=== PATIENT | male | born 1965 | race African-American/Black ===

== ENCOUNTER 2020-05-24 19:05 | Inpatient (IN) | payer BC ==
[~2020-05-24] VITALS: Ht 177.8 cm; Wt 137.0 kg
[~2020-05-24 19:05] MED LIST: AMLO10TA80 PO; ASPI-1497 PO; LISI-604 PO; LISI2.5T47 PO; SIMV-46 PO; SITA50TA3 PO; SPIR25TA6 PO
[2020-05-24] MEDS ORDERED: MORPHINE SULFATE 4 MG/ML CPJ (NOT FOR IM USE) IV STA (20:03)
[2020-05-24] MEDS ORDERED: SODIUM CHLORIDE 0.9% 500 ML IV ONE (20:15)
[2020-05-24 21:01] LABS: BASOPHILS % 0.8 % (0.0-2.0); EOSINOPHILS % 1.1 % (0.0-5.0); HEMATOCRIT. 46.3 % (42.0-52.0); HEMOGLOBIN. 15.6 g/dL (14.0-18.0); LYMPHOCYTES % 30.1 % (20.0-50.0); MEAN CORPUSCULAR VOLUME 83.3 fL (80.0-94.0); MEAN PLATELET VOLUME 8.5 fl (7.4-10.4); MONOCYTES % 12.3 % (2.0-8.0); NEUTROPHILS % 55.7 % (40.0-76.0); PLATELET 266 x1000/uL (130-400); RED BLOOD CELL COUNT 5.56 mill/uL (4.7-6.1); RED CELL DISTRIBUTION WIDTH 14.9 % (11.6-14.6)
[2020-05-24 21:09] LABS: CLARITY URINE CLEAR (CLEAR); COLOR URINE YELLOW (YELLOW); KETONES URINE NEGATIVE (NEGATIVE); LEUKOCYTE ESTERASE URINE NEGATIVE (NEGATIVE); NITRITE URINE NEGATIVE (NEGATIVE); OCCULT BLOOD URINE NEGATIVE (NEGATIVE); PH URINE 7.5 (4.5-8.0); PROTEIN URINE 2+ (NEGATIVE); SPECIFIC GRAVITY URINE 1.022 (1.005-1.030); UROBILINOGEN URINE 0.2 E.U./dL (0.2-1.0)
[2020-05-24 21:11] LABS: CHLORIDE 100 mEq/L (98-107)
[2020-05-24 21:12] LABS: INR 1.1; PROTHROMBIN TIME 11.6 sec (9.6-11.0)
[2020-05-24] MEDS ORDERED: IOHEXOL-300 100 ML BOTTLE ONE (22:53)
[2020-05-24] MEDS ORDERED: LACTATED RINGERS 1,000 ML IV ONE (23:15)
[2020-05-24] MEDS ORDERED: DEXTROSE 50% WATER 50ML SYRINGE IV ONE (23:15)
[2020-05-25] MEDS ORDERED: ONDANSETRON HCL 4MG/2ML INJ IV PRN (10:15)
[2020-05-25] MEDS: DEXT 5%/0.45% NACL 1000ML 1,000 ML IV SCH ×2 (10:15→22:47)
[2020-05-25] MEDS ORDERED: POTASSIUM CHLORIDE 20MEQ TABLET SR PO NR (10:15)
[2020-05-25] MEDS: ACETAMINOPHEN 325MG TABLET PO PRN (11:41)
[2020-05-25 21:00] VITALS: BP 120/72
[2020-05-25] MEDS: MORPHINE SULFATE 2 MG/ML CPJ (NOT FOR IM USE) IV PRN (21:39)
[2020-05-26] VITALS: BP 129/73
[2020-05-26] MEDS ORDERED: MULT-1116 PO (03:20)
[2020-05-26] MEDS ORDERED: SITA1TBM7 PO (03:20)
[2020-05-26] MEDS ORDERED: TIMO5DRO32 OP (03:20)
[2020-05-26] MEDS ORDERED: APIX5TAB PO (03:20)
[2020-05-26] MEDS ORDERED: FAMO-135 PO (03:20)
[2020-05-26] MEDS ORDERED: LEVO500T2 PO (03:20)
[2020-05-26] MEDS ORDERED: NETA2.5D OP (03:20)
[2020-05-26] MEDS ORDERED: BIMA2.5D4 OP (03:20)
[2020-05-26] MEDS ORDERED: DAPA10TA PO (03:20)
[2020-05-26] MEDS ORDERED: FURO-151 PO (03:20)
[2020-05-26 04:00] VITALS: BP 119/88
[2020-05-26] MEDS: ACETAMINOPHEN 325MG TABLET PO PRN (06:40)
[2020-05-26 08:00] VITALS: BP 122/66
[2020-05-26] MEDS ORDERED: LIDOCAINE HCL 1% 20ML VIAL (Pyxis) INJ ONE (10:00)
[2020-05-26] MEDS: MORPHINE SULFATE 2 MG/ML CPJ (NOT FOR IM USE) IV PRN ×2 (10:58→21:46)
[2020-05-26 12:00] VITALS: BP 119/76
[2020-05-26] MEDS: DEXT 5%/0.45% NACL 1000ML 1,000 ML IV SCH (14:14)
[2020-05-26 16:00] VITALS: BP 134/91
[2020-05-26 17:52] LABS: BASOPHILS % 0.8 % (0.0-2.0); EOSINOPHILS % 2.7 % (0.0-5.0); HEMATOCRIT. 42.2 % (42.0-52.0); HEMOGLOBIN. 14.2 g/dL (14.0-18.0); LYMPHOCYTES % 29.1 % (20.0-50.0); MEAN CORPUSCULAR HEMOGLOBIN 28.1 pg (28.0-32.0); MEAN CORPUSCULAR VOLUME 83.4 fL (80.0-94.0); MEAN PLATELET VOLUME 8.7 fl (7.4-10.4); MONOCYTES % 12.7 % (2.0-8.0); NEUTROPHILS % 54.7 % (40.0-76.0); PLATELET 225 x1000/uL (130-400); RED BLOOD CELL COUNT 5.06 mill/uL (4.7-6.1); RED CELL DISTRIBUTION WIDTH 15.1 % (11.6-14.6)
[2020-05-26 18:00] LABS: CHLORIDE 104 mEq/L (98-107)
[2020-05-26 20:00] VITALS: BP 143/81
[2020-05-26] MEDS ORDERED: POTASSIUM CHLORIDE 20MEQ TABLET SR PO SCH (20:00)
[2020-05-27] VITALS: BP 139/80
[2020-05-27] MEDS: DEXT 5%/0.45% NACL 1000ML 1,000 ML IV SCH (02:13)
[2020-05-27 04:00] VITALS: BP 129/80
[2020-05-27] MEDS: MORPHINE SULFATE 2 MG/ML CPJ (NOT FOR IM USE) IV PRN (06:55)
[2020-05-27 08:00] VITALS: BP 140/78
[2020-05-27] MEDS ORDERED: DEXTROSE 50% WATER 50ML SYRINGE IV PRN ×2 (08:45)
[2020-05-27 11:34] LABS: PHOSPHORUS 2.5 mg/dL (2.5-4.9)
[2020-05-27] MEDS: ENOXAPARIN 40MG/0.4ML SYR SUBCUT SCH ×2 (11:57→21:00)
[2020-05-27] MEDS: DEXT 5%/0.45% NACL KCL 20MEQ/L 1,000 ML IV SCH ×2 (11:57→20:00)
[2020-05-27] MEDS: BLOOD SUGAR DIAGNOSTIC STRIP TEST SCH ×3 (11:57→21:41)
[2020-05-27 12:00] VITALS: BP 154/90
[2020-05-27] MEDS: INSULIN LISPRO 100 UNITS/ML SUBCUT SCH ×3 (12:19→21:43)
[2020-05-27 20:00] VITALS: BP 137/67
[2020-05-28] VITALS: BP 111/70
[2020-05-28 04:00] VITALS: BP 137/79
[2020-05-28] MEDS: BLOOD SUGAR DIAGNOSTIC STRIP TEST SCH ×2 (06:32→12:52)
[2020-05-28] MEDS: DEXT 5%/0.45% NACL KCL 20MEQ/L 1,000 ML IV SCH (06:32)
[2020-05-28 07:02] LABS: BASOPHILS % 0.6 % (0.0-2.0); EOSINOPHILS % 2.9 % (0.0-5.0); HEMATOCRIT. 40.1 % (42.0-52.0); HEMOGLOBIN. 13.6 g/dL (14.0-18.0); LYMPHOCYTES % 28.3 % (20.0-50.0); MEAN CORPUSCULAR HEMOGLOBIN 28.1 pg (28.0-32.0); MEAN CORPUSCULAR VOLUME 82.8 fL (80.0-94.0); MEAN PLATELET VOLUME 8.5 fl (7.4-10.4); MONOCYTES % 12.4 % (2.0-8.0); NEUTROPHILS % 55.8 % (40.0-76.0); PLATELET 211 x1000/uL (130-400); RED BLOOD CELL COUNT 4.84 mill/uL (4.7-6.1); RED CELL DISTRIBUTION WIDTH 14.9 % (11.6-14.6)
[2020-05-28 07:05] LABS: CHLORIDE 107 mEq/L (98-107)
[2020-05-28 07:16] LABS: AMYLASE 107 IU/L (25-115)
[2020-05-28 07:20] LABS: LDL CHOLESTEROL 50 mg/dL (5-100)
[2020-05-28 07:21] LABS: HDL CHOLESTEROL 31 mg/dL (40-59)
[2020-05-28 08:00] VITALS: BP 132/76
[2020-05-28] MEDS: INSULIN LISPRO 100 UNITS/ML SUBCUT SCH ×2 (08:55→13:24)
[2020-05-28] MEDS ORDERED: APIXABAN 2.5 MG TABLET PO SCH (09:00)
[2020-05-28 12:00] VITALS: BP 137/84
[2020-05-28 13:38] VITALS: BP 137/84
== END 2020-05-28 14:22 | disposition home or self-care (01) | DRG 438 ==
LOC: ER 19:05 → MICUSO 22:34 → EDBEDREQ 22:45 → EDBEDREQSVC 22:45 → EDBEDREQTM 22:45 → 6WST 05-25 15:04 → MICUSO 05-25 15:59 → 6EST 05-25 19:40
PROVIDERS: ADMIT Internal Medicine Geriatric Medicine; ATTEND Internal Medicine Geriatric Medicine
PROC: 02HV33Z Insertion of Infusion Device into Superior Vena Cava, Percutaneous Approach (ICD-10-PCS; principal; 2020-05-26)
PROC: B548ZZA Ultrasonography of Superior Vena Cava, Guidance (ICD-10-PCS; 2020-05-26)
PROC: B5181ZA Fluoroscopy of Superior Vena Cava using Low Osmolar Contrast, Guidance (ICD-10-PCS; 2020-05-26)
DX: K85.90 Acute pancreatitis without necrosis or infection, unspecified (principal); N17.0 Acute kidney failure with tubular necrosis; E87.1 Hypo-osmolality and hyponatremia; I48.20 Chronic atrial fibrillation, unspecified; Z68.41 Body mass index [BMI] 40.0-44.9, adult; E11.9 Type 2 diabetes mellitus without complications; E87.6 Hypokalemia; I11.0 Hypertensive heart disease with heart failure; I50.9 Heart failure, unspecified; E66.01 Morbid (severe) obesity due to excess calories; K76.0 Fatty (change of) liver, not elsewhere classified; K81.9 Cholecystitis, unspecified; Z79.01 Long term (current) use of anticoagulants; Z79.4 Long term (current) use of insulin; Z79.82 Long term (current) use of aspirin; Z79.899 Other long term (current) drug therapy; Z82.49 Family history of ischemic heart disease and other diseases of the circulatory system; Z83.3 Family history of diabetes mellitus; Z90.49 Acquired absence of other specified parts of digestive tract; Z88.1 Allergy status to other antibiotic agents; Z71.3 Dietary counseling and surveillance; D72.829 Elevated white blood cell count, unspecified
CPT/HCPCS: 36415; 36573; 71045; 74177; 76705; 78227; 80048; 80053; 80061; 81003; 82150; 82962; 83036; 83605; 83735; 83880; 84100; 84145; 84478; 84484; 85025; 93005; 96374; 97162; 99285; A9537; C1725; J1650; J1815; J2270; J3490; J7040; J7120; Q9967